=== PATIENT | male | born 1965 | race Hispanic/Latino ===

== ENCOUNTER 2018-05-31 08:23 | Day surgery (SDC) | payer OTHER ==
--- OUTSIDE RECORDS SUMMARY | 2018-05-31 08:25 | XMS REPORT | Clinical Summary ---
:1965 Author Organization [facility] Address [address] [place] [address] Care Team Providers Name Role Phone Asked, No Pcp Primary Care Provider Unavailable Allergies Active Allergy Reactions Severity Noted Date Comments Penicillins 04/16/2017 Medications Medication Sig Dispensed Refills Start Date End Date Status aspirin (ECOTRIN) Take 1 tablet 0 Active 81 MG enteric every day by coated tablet oral route. clopidogrel clopidogrel 75 0 Active (PLAVIX) 75 mg mg tablet tablet nightly pravastatin pravastatin 40 0 Active (PRAVACHOL) 40 MG mg tablet tablet nightly rosuvastatin TAKE ONE TABLET 30 tablet 0 08/26/2017 Active (CRESTOR) 10 MG BY MOUTH ONCE tablet DAILY rosuvastatin Take 1 tablet 90 tablet 2 11/24/2017 Active (CRESTOR) 10 MG (10 mg total) by tablet mouth daily. lisinopril TAKE 1 TABLET BY 90 tablet 0 03/15/2018 Active (PRINIVIL,ZESTRIL) MOUTH ONCE DAILY 5 mg tablet carvedilol (COREG) TAKE 1 TABLET BY 180 tablet 1 03/15/2018 Active 12.5 MG tablet MOUTH TWICE DAILY WITH FOOD rosuvastatin Take 1 tablet 90 tablet 3 09/22/2016 Discontinued (CRESTOR) 10 MG (10 mg total) by 8 tablet mouth daily for 90 days. carvedilol (COREG) TAKE ONE TABLET 180 tablet 1 02/25/2017 Discontinued 12.5 MG tablet BY MOUTH TWICE 8 DAILY WITH FOOD lisinopril TAKE ONE TABLET 90 tablet 1 05/29/2017 Discontinued (PRINIVIL,ZESTRIL) BY MOUTH ONCE 8 5 mg tablet DAILY carvedilol (COREG) TAKE ONE TABLET 180 tablet 1 08/26/2017 Discontinued 12.5 MG tablet BY MOUTH TWICE 8 DAILY WITH FOOD rosuvastatin TAKE ONE TABLET 30 tablet 0 10/28/2017 Discontinued (CRESTOR) 10 MG BY MOUTH ONCE 8 tablet DAILY lisinopril TAKE ONE TABLET 90 tablet 0 12/10/2017 Discontinued (PRINIVIL,ZESTRIL) BY MOUTH ONCE 8 5 mg tablet DAILY Active Problems Problem Noted Date S/P PTCA (percutaneous transluminal coronary angioplasty) 04/16/2017 Benign hypertension 03/11/2016 Chest pain 03/11/2016 Chronic coronary artery disease 03/11/2016 Dyslipidemia 03/11/2016 Myocardial infarction 03/11/2016 Encounters Date Type Specialty Care Team Description 03/12/2018 Refill Cardiology Victor Hugo Lyle MD Med Refill 12/10/2017 Refill Cardiology Victor Hugo Lyle MD Med Refill 11/24/2017 Refill Cardiology Victor Hugo Lyle MD Med Refill 11/23/2017 Refill Cardiology Victor Hugo Lyle MD Med Refill 11/04/2017 Telephone Cardiology Victor Hugo Lyle MD abnormal labs 10/28/2017 Orders Only Cardiology Victor Hugo Lyle MD Coronary artery disease involving [place] heart without angina pectoris, unspecified vessel or lesion type (Primary Dx); Other hyperlipidemia; Essential hypertension 10/24/2017 Refill Cardiology Victor Hugo Lyle MD Med Refill 08/26/2017 Refill Cardiology Victor Hugo Lyle MD Med Refill 07/02/2017 Office Visit Cardiology Victor Hugo Lyle MD Chronic coronary artery disease (Primary Dx); ST elevation myocardial infarction involving left anterior descending ( LAD) coronary artery after 05/30/2017 Family History Medical History Relation Name Comments Diabetes Mother Heart attack Mother Relation Name Status Comments Mother Other Family History There is no family history of premature coronary artery disease. Social History Tobacco Use Types Packs/Day Years Used Date Former Smoker Smokeless Tobacco: Never Used Alcohol Use Drinks/Week oz/Week Comments No Sex Assigned at Date Recorded Not on file Job Start Date Occupation Industry Not on file Not on file Not on file Travel History Travel Start Travel End No recent travel history available. Last Filed Vital Signs Vital Sign Reading Time Taken Blood Pressure 134/88 07/02/2017 10:23 AM [employer] Pulse 62 07/02/2017 10:23 AM [employer] Temperature - - Respiratory Rate - - Oxygen Saturation - - Inhaled Oxygen Concentration - - Weight 102 kg (224 lb) 07/02/2017 10:23 AM [employer] Height 180.3 cm (5' 11") 07/02/2017 10:23 AM [employer] Body Mass Index 31.24 07/02/2017 10:23 AM [employer] Plan of Treatment Date Type Specialty Care Team Description 07/08/2018 Office Visit Cardiology Victor Hugo Lyle MD [address] [facility] [address] [place] [id number] Health Maintenance Due Date Last Done Comments COLON CANCER SCREENING 11/02/2015 SHINGLES VACCINES (1 of 2) 11/02/2015 INFLUENZA VACCINE 12/09/2017 Procedures Procedure Name Priority Date/Time Associated Diagnosis Comments LIPID PANEL Routine 11/03/2017 8:27 Coronary artery Results for this AM CDT disease involving procedure are in [place] heart without the results angina pectoris, section. unspecified vessel or lesion type Other hyperlipidemia Essential hypertension COMPREHENSIVE Routine 11/03/2017 8:27 Coronary artery Results for this METABOLIC PANEL AM CDT disease involving procedure are in [place] heart without the results angina pectoris, section. unspecified vessel or lesion type Other hyperlipidemia Essential hypertension after 05/30/2017 Results Lipid panel (11/03/2017 8:27 AM CDT) Cholesterol, total 166 <200 mg/dL [facility] HDL cholesterol 43 >40 mg/dL [facility] Triglycerides 169 (H) <150 mg/dL [facility] LDL cholesterol 96 mg/dL (calc) [facility] calculated Comment: [place] Reference range: <100 Desirable range <100 mg/dL for primary prevention; <70 mg/dL for patients with CHD or diabetic patients with > or=2 CHD risk factors. LDL-C is now calculated using the Sherlyn calculation, which is a validated novel method providing better accuracy than the Friedewald equation in the estimation of LDL-C. Prashanth SS et al. GIOVANNA. 2013;310(19): 9137-1372 (http://education.Classiphix/faq/XZM982) Cholesterol/HDL ratio 3.9 <5.0 (calc) [facility] [place] Non-HDL cholesterol 123 <130 mg/dL [facility] Comment: (calc) [place] For patients with diabetes plus 1 major ASCVD risk factor, treating to a non-HDL-C goal of <100 mg/dL (LDL-C of <70 mg/dL) is considered a therapeutic option. Specimen Blood Narrative Performed At FASTING:YES [facility] FASTING: YES Resulting Agency Comment Performing Organization Information: Site ID: [id number] Address: [address] [place] [address] Director: Neli Silva Performing Organization Address City/State/Zipcode Phone Number [facility] [place] [id number] [place] [address] Comprehensive metabolic panel (11/03/2017 8:27 AM CDT) Glucose 92 65 - 99 mg/dL [facility] Comment: [place] Fasting reference interval BUN, whole blood 18 7 - 25 mg/dL [facility] [place] Creatinine 1.60 (H) 0.70 - 1.33 [facility] Comment: mg/dL [place] For patients >49 years of age, the reference limit for Creatinine is approximately 13% higher for people identified as -[place]. EGFR Non-Afr. [place] 49 (L) > OR=60 [facility] mL/min/1.73m2 [place] EGFR 57 (L) > OR=60 [facility] mL/min/1.73m2 [place] BUN/creatinine ratio 11 6 - 22 (calc) [facility] [place] Sodium 141 135 - 146 mmol/L [facility] [place] Potassium 4.2 3.5 - 5.3 mmol/L [facility] [place] Chloride 108 98 - 110 mmol/L [facility] [place] CO2 24 20 - 31 mmol/L [facility] [place] Calcium 8.9 8.6 - 10.3 mg/dL [facility] [place] Protein 6.6 6.1 - 8.1 g/dL [facility] [place] Albumin, S 3.8 3.6 - 5.1 g/dL [facility] [place] Globulin, total 2.8 1.9 - 3.7 g/dL [facility] (calc) [place] Albumin/globulin ratio 1.4 1.0 - 2.5 (calc) [facility] [place] Total bilirubin 0.8 0.2 - 1.2 mg/dL [facility] [place] Alkaline phosphatase 94 40 - 115 U/L [facility] [place] AST 12 10 - 35 U/L [facility] [place] ALT 11 9 - 46 U/L [facility] [place] Specimen Blood Narrative Performed At FASTING:YES [facility] FASTING: YES Resulting Agency Comment Performing Organization Information: Site ID: [id number]: [facility] Address: [address] [place] [address] Director: Neli Silva Performing Organization Address City/State/Zipcode Phone Number [facility] [place] [address] [place] [address] after 05/30/2017 Insurance Payer Benefit Plan / Group Subscriber ID Type Phone Address AETNA MEDICARE AETNA MEDICARE HMO/PPO [facility] xxxxxxxx HMO Advance Directives Patient has advance care planning documents on file. For more information, please contact:Nigel [id number] [place] [address]
[2018-05-31] MEDS ORDERED: NA CHLORIDE 0.9% 1,000 ML ONE (08:50)
== END 2018-05-31 10:51 | disposition home or self-care (01) ==
LOC: DS 08:23
PROVIDERS: ATTEND Internal Medicine
DX: N04.9 Nephrotic syndrome with unspecified morphologic changes (principal); N18.3 Chronic kidney disease, stage 3 (moderate); Z01.818 Encounter for other preprocedural examination
CPT/HCPCS: J7030